=== PATIENT | male | born 1955 | race Caucasian/White ===

== ENCOUNTER 2023-10-07 09:25 | Outpatient (CLI) | payer MEDICARE, SELFPAY ==
--- NOTE | ~2023-10-07 | MR_ITS ---
MRI of the lumbar spine Clinical History: Radiculopathy Technique: Axial T2-weighted images, and sagittal T1-weighted, T2-weighted, and and T2 fat-sat images were acquired. Findings: There is a 1 compression fracture with vertebroplasty cement present. No other fracture or subluxation evident. No other bone marrow signal abnormality seen. There is mild retropulsion of the posterior margin of the L1 vertebral body. At L1-L2, there is mild degenerative change. There is mild disc bulge and moderate facet arthropathy. There is moderate thecal sac compression. There is moderate bilateral neural foraminal narrowing, ri ght worse than left. At L2-L3, there is mild disc bulge and moderate facet arthropathy. There is moderate central canal st enosis/thecal sac compression. There is mild left neural foraminal narrowing. Right neural foramen pr eserved. At L3-L4, there is mild disc bulge and advanced facet arthropathy. There is no jonas central canal st enosis. There is mild bilateral neural foraminal narrowing. At L4-L5, there is disc bulge and advanced facet arthropathy. There is mild central canal stenosis. T here is moderate bilateral neural foraminal narrowing. At L5-S1, there is mild disc bulge and moderate facet arthropathy. No central canal stenosis. Neural foramina are preserved. Paravertebral soft tissues are unremarkable. Impression: Moderate to advanced degenerative spondylosis, as above. Chronic L1 compression fracture with vertebroplasty cement. Reviewed, dictated and finalized at [facility]. Impression: Moderate to advanced degenerative spondylosis, as above. Chronic L1 compression fracture with vertebroplasty cement.
== END 2023-10-07 09:26 ==
LOC: GOSHIMG 09:26
PROVIDERS: PCP Internal Medicine; Visit Provider Internal Medicine
DX: M47.26 Other spondylosis with radiculopathy, lumbar region (principal); S32.010D Wedge compression fracture of first lumbar vertebra, subsequent encounter for fracture with routine healing; X58.XXXD Exposure to other specified factors, subsequent encounter
CPT/HCPCS: 72148

== ENCOUNTER 2024-03-29 10:44 | Outpatient (CLI) | payer MEDICARE, SELFPAY ==
--- NOTE | ~2024-03-29 | CT_ITS ---
EXAMINATION: CT lumbar spine wo con DATE: 03/29/2024 11:18 INDICATION: Lumbar spondylosis without myelopathy or radiculopathy. TECHNIQUE: Computed tomography (CT) of the lumbar spine was performed without intravenous contrast. A utomated exposure control and iterative reconstruction technique were employed. The dose-length produ ct was 1062.26 mGy-cm. COMPARISON: Lumbar spine MRI 10/07/2023 FINDINGS: There are small pleural effusions. There is 3 degrees levocurvature of thoracolumbar spine. There is a burst fracture of L1 with greater than 4/5 loss of height and retropulsion of bone 5 mm i nto central spinal canal. There is a compression fracture of superior endplate of L2 with 2/5 loss of height centrally on the left. There is severely decreased disc height at L1-L2. The following disc l evels are specifically discussed: T12-L1: The disc is bulging. There is moderate bilateral facet joint osteoarthritis. There is mild bi lateral neural foraminal stenosis. There is mild central canal stenosis. L1-L2: The disc is bulging. There is mild bilateral facet joint osteoarthritis. There is mild bilater al neural foraminal stenosis. There is mild central canal stenosis. L2-L3: The disc is bulging. There is severe bilateral facet joint osteoarthritis. There is mild bilat eral neural foraminal stenosis. There is mild central canal stenosis. L3-L4: The disc is bulging. There is severe bilateral facet joint osteoarthritis. There is moderate r ight and mild left neural foraminal stenosis. There is mild central canal stenosis. L4-L5: The disc is bulging. There is severe bilateral facet joint osteoarthritis. There is moderate b ilateral neural foraminal stenosis. There is mild central canal stenosis. L5-S1: The disc is bulging. There is severe bilateral facet joint osteoarthritis. There is mild bilat eral neural foraminal stenosis. There is mild central canal stenosis. IMPRESSION: 1. L1 burst fracture, worsened from 10/07/2023. 2. Acute versus subacute L2 compression fracture. 3. Moderate lumbar spondylosis. Reviewed, dictated and finalized at location []
--- NOTE | ~2024-03-29 | MR_ITS ---
MRI of the lumbar spine Clinical History: Spondylosis, radiculopathy Technique: Axial T2-weighted images, and sagittal T1-weighted, T2-weighted, and T2 fat-sat images wer e acquired. COMPARISON: 10/07/2023 Findings: There is been probable progressive loss of height of L1, now with a nearly vertebra plana a ppearance, with probable prior vertebroplasty at this level. There is prominent marrow edema involvin g the upper portion of the L2 vertebral body with probable developing acute Schmorl's node present. N o other bone marrow signal reality seen in the lumbar spine. At L1-L2, there is disc bulge and moderate to advanced facet arthropathy. There is moderate to advanc ed canal stenosis/thecal sac compression, especially at L1 level, related to retropulsion of the L1 v ertebral body. There is severe bilateral neural foraminal narrowing. At L2-L3, there is mild disc bulge and severe facet arthropathy. There is mild central canal stenosis /thecal sac compression. Neural foramina are preserved. At L3-L4, there is disc bulge with moderate to advanced facet arthropathy. No central canal stenosis. No definite neural foraminal narrowing. At L4-L5, there is diffuse disc bulge with advanced facet arthropathy. No central canal stenosis. The re is moderate to advanced bilateral neural foraminal narrowing, left worse than right. At L5-S1, there is disc bulge and advanced facet arthropathy. There is severe thecal sac compression largely related to prominent epidural fat at this level. There is mild bilateral neural foraminal oksana rowing. Paravertebral soft tissues are unremarkable. Impression: Worsening severe compression fracture deformity of L1, now with nearly vertebral plana appearance, wi th evidence of prior vertebroplasty. Acute developing Schmorl's node at the superior endplate of L2. Advanced degenerative spondylosis, as detailed above. Reviewed, dictated and finalized at location [facility]. Impression: Worsening severe compression fracture deformity of L1, now with nearly vertebra l plana appearance, with evidence of prior vertebroplasty. Acute developing Schmorl's node at the superior endplate of L2. Advanced degenerative spondylosis, as detailed above.
== END 2024-03-29 10:45 | disposition home or self-care (01) ==
LOC: GOSHIMG 10:46
PROVIDERS: PCP Internal Medicine
DX: M47.816 Spondylosis without myelopathy or radiculopathy, lumbar region (principal); S32.011D Stable burst fracture of first lumbar vertebra, subsequent encounter for fracture with routine healing; X58.XXXD Exposure to other specified factors, subsequent encounter
CPT/HCPCS: 72131; 72148